=== PATIENT | female | born 1975 | race Caucasian/White ===

== ENCOUNTER 2016-06-03 10:35 | Emergency (ER) | payer OTHER ==
[~2016-06-03] VITALS: Ht 172.7 cm; Wt 97.1 kg
[2016-06-03] MEDS ORDERED: ZYRTEC10 M2 PO (11:21)
[2016-06-03] MEDS ORDERED: TRAMADOL HCL50 MG PO (12:01)
[2016-06-03] MEDS ORDERED: CLINDAMYCIN HC150 MG PO (12:01)
[2016-06-03 13:50] VITALS: BP 127/64
== END 2016-06-03 13:51 | disposition home or self-care (01) ==
LOC: EME 10:35
DX: K11.20 Sialoadenitis, unspecified (principal); H92.02 Otalgia, left ear
CPT/HCPCS: 99281; 99285; J0696; J1885; J7050